=== PATIENT | male | born 1990 | race Caucasian/White ===

== ENCOUNTER 2017-05-03 07:35 | Emergency (ER) | payer SELFPAY ==
[2017-05-03] MEDS ORDERED: IBUPROFEN 600 MG TABLET PO ONE (07:59)
--- NOTE | 2017-05-03 08:01 | ER Document Report ---
ED General - General Chief Complaint: Hand Injury Stated Complaint: FALL/HAND PAIN Time Seen by Provider: 05/03/17 07:55 Notes: 27-year-old male presents with pain in the right hand for 3 days since it was crushed by a an auto part while he was fixing a car. He has pain mostly in the knuckles of the third through fifth digits which radiates up the ulnar aspect of his arm. Associated with tingling of the pinky and subjective tingling up the ulnar aspect of the forearm. Tetanus is up-to-date. Scabs on the hand are healing without redness or pus per patient. No fever. He is also been having left ankle pain "ever since the snow came" and has had an old injury on that leg. Of note the patient is markedly obese. - Related Data Allergies/Adverse Reactions: No Known Allergies Allergy (Verified 05/03/17 08:05) Past Medical History - Social History Smoking Status: Never Smoker Family History: None Review of Systems - Review of Systems Notes: REVIEW OF SYSTEMS GEN: Denies fever, chills, weight loss ENT: Denies sore throat, nasal discharge, ear pain EYES: Denies blurry vision, eye pain, discharge CV: Denies chest pain, palpitations, edema RESP: Denies cough, shortness of breath, wheezing GI: Denies abdominal pain, nausea, vomiting, diarrhea MSK: Right hand pain left ankle pain, SKIN: Denies rash, skin lesions LYMPH: Denies swollen glands/lymph nodes NEURO: Denies headache, focal weakness or numbness, dizziness PSYCH: Denies depression, suicidal or homicidal ideation PHYSICAL EXAMINATION General: No acute distress, well-nourished Head: Atraumatic, normocephalic ENT: Mouth normal, oropharynx moist, no exudates or tonsillar enlargement Eyes: Conjunctiva normal, pupils equal, lids normal Neck: No JVD, supple, no guarding CVS: Normal rate, regular rhythm, no murmurs Resp: No resp distress, equal and normal breath sounds bilaterally GI: Nondistended, soft, no tenderness to palpation, no rebound or guarding Ext: mild swelling of the right hand with tenderness through the third through fifth metacarpal phalangeal joints and over the metacarpals. Good range of motion in all joints. Scabbing to the knuckles on the third through fifth digit as well as the proximal interphalangeal joints of the same. Left ankle with good range of motion no apparent effusion and no point tenderness. Back: No CVA or midline TTP Skin: No rash, warm Lymphatic: No lymphadeopathy noted Neuro: Awake, alert. Face symmetric. GCS 15. Subjective tingling in the ring and pinky finger on the right hand. Physical Exam - Vital signs Vitals: Temp Pulse Resp BP Pulse Ox 98.4 F 102 H 19 150/90 H 98 05/03/17 07:39 05/03/17 07:39 05/03/17 07:39 05/03/17 07:39 05/03/17 07:39 Course - Re-evaluation Re-evalutation: 05/03/17 08:01 Obese 27-year-old male presents with traumatic right hand pain for 2 days concerning for fracture. Definitely there was a component of crush injury although his compartments are soft and there is only mild edema. Numbness and tingling on the right hand is likely from a nerve injury to the ulnar aspect of the hand rather than compartment syndrome. Ankle pain is likely arthritis/flare of chronic injury in the setting of whether , doubt gout doubt septic arthritis. Will x-ray both joints, treat with Motrin and reassess. 05/03/17 08:46 Imaging shows chronic right metacarpal deformity. His symptoms are likely from soft tissue. I will have him start the elevate, splint for comfort and follow- up with orthopedics. His echo shows arthritis. Likely the chronic flare given the weather. Prescribed Motrin and narcotic. Follow-up primary care for that ankle. I have discussed with the patient there likely diagnosis, aftercare plan, follow -up plans and my usual and customary return precautions. They verbalized understanding of this. 05/03/17 08:47 - Vital Signs Vital signs: Temp Pulse Resp BP Pulse Ox 98.4 F 102 H 19 150/90 H 98 05/03/17 07:39 05/03/17 07:39 05/03/17 07:39 05/03/17 07:39 05/03/17 07:39 - Diagnostic Test Radiology reviewed: Image reviewed, Reports reviewed Discharge - Discharge Clinical Impression: Injury, crush, hand Qualifiers: Encounter type: initial encounter Laterality: right Qualified Code(s): S67.21XA - Crushing injury of right hand, initial encounter Condition: Good Disposition: HOME, SELF-CARE Instructions: Crush Injury ([facility]) Additional Instructions: We did not find a broken bone in your hand. You definitely have an injury to the nerve and a crush injury to the hand. Please take the pain meds are prescribed and follow-up with orthopedics in 3-5 days. Please return to the ER for worsening numbness or tingling in the hand. Prescriptions: Ibuprofen 600 mg PO Q6HP PRN #30 tablet PRN Reason: Oxycodone HCl/Acetaminophen [Percocet 5-325 mg Tablet] 2 tab PO Q6HP PRN #15 tab PRN Reason: Forms: Return to Work
--- NOTE | 2017-05-03 08:44 | RADIOLOGY REPORT (SQ) ---
EXAM DESCRIPTION: ANKLE LEFT COMPLETE COMPLETED DATE/TIME: 05/03/2017 8:33 am REASON FOR STUDY: pain swelling COMPARISON: None. NUMBER OF VIEWS: Three views. TECHNIQUE: AP, lateral, and oblique radiographic images acquired of the left ankle. LIMITATIONS: None. FINDINGS: MINERALIZATION: Normal. BONES: Chronic appearing avulsions along the medial and lateral malleolar. No definitive acute fract ure. JOINTS: No effusions. SOFT TISSUES: Soft tissue swelling. No foreign body. OTHER: No other significant finding. IMPRESSION: Chronic appearing changes along the lateral and medial malleolus. No definite acute fra cture. TECHNICAL DOCUMENTATION: JOB ID: [id number] [email or web address]- All Rights Reserved
--- NOTE | 2017-05-03 08:45 | RADIOLOGY REPORT (SQ) ---
EXAM DESCRIPTION: HAND RIGHT 3 VIEWS COMPLETED DATE/TIME: 05/03/2017 8:33 am REASON FOR STUDY: injury COMPARISON: None. EXAM PARAMETERS: NUMBER OF VIEWS: Three views. TECHNIQUE: AP, lateral and oblique radiographic images acquired of the right hand. LIMITATIONS: None. FINDINGS: MINERALIZATION: Normal. BONES: Chronic deformity of the 5th metacarpal. No acute fracture. JOINTS: No effusions. SOFT TISSUES: No soft tissue swelling. No foreign body. OTHER: No other significant finding. IMPRESSION: Chronic deformity of the 5th metacarpal without acute fracture. TECHNICAL DOCUMENTATION: JOB ID: [id number] [email or web address]- All Rights Reserved
[2017-05-03 08:56] VITALS: BP 134/87
== END 2017-05-03 08:56 | disposition home or self-care (01) ==
LOC: ER 07:35
DX: S67.21XA Crushing injury of right hand, initial encounter (principal); M79.641 Pain in right hand; X58.XXXA Exposure to other specified factors, initial encounter; Y93.89 Activity, other specified; M19.90 Unspecified osteoarthritis, unspecified site; M25.572 Pain in left ankle and joints of left foot; E66.9 Obesity, unspecified; Z68.44 Body mass index [BMI] 60.0-69.9, adult; R20.0 Anesthesia of skin; R20.2 Paresthesia of skin
CPT/HCPCS: 99283

== ENCOUNTER 2017-06-02 15:40 | Emergency (ER) | payer SELFPAY ==
[2017-06-02 15:57] VITALS: BP 162/97
[2017-06-02] MEDS ORDERED: LIDOCAINE 1% INJ-PF (10 MG/ML) 30 ML SDV INJ ONE (16:36)
--- NOTE | 2017-06-02 16:43 | ER Document Report ---
ED Wound - General Chief Complaint: Laceration Stated Complaint: RIGHT HAND LACERATION Time Seen by Provider: 06/02/17 16:36 Notes: Patient is a 27-year-old male presenting to the emergency department with a laceration to his right hand. Patient reports that he did not know that his pocket knife was open, he put his hand in his pocket and sliced the lateral side of his hand. Bleeding is controlled at this time. Patient reports he has limited movement of his right pinky finger prior to the laceration due to a fracture. Patient reports his tetanus status is up-to-date TRAVEL OUTSIDE OF THE [place] IN LAST 30 DAYS: No - HPI Patient complains to provider of: Laceration Occurred: Just prior to arrival Onset/Duration: Sudden Quality of pain: Sharp Context: Injury Skin Temperature: Warm Skin Color: Normal Capillary refill: < 3 seconds Sensations intact: Yes Distal pulses present: Yes Associated Symptoms: None - Related Data Allergies/Adverse Reactions: No Known Allergies Allergy (Verified 06/02/17 15:44) Past Medical History - General Information source: Patient - Social History Smoking Status: Current Every Day Smoker Frequency of alcohol use: None Drug Abuse: None Lives with: Family Family History: None - Medical History Medical History: Other - Obesity Renal/ Medical History: Denies: Hx Peritoneal Dialysis Review of Systems - Review of Systems Constitutional: No symptoms reported EENT: No symptoms reported Cardiovascular: No symptoms reported Respiratory: No symptoms reported Gastrointestinal: No symptoms reported Genitourinary: No symptoms reported Male Genitourinary: No symptoms reported Musculoskeletal: No symptoms reported Skin: No symptoms reported Hematologic/Lymphatic: No symptoms reported Neurological/Psychological: No symptoms reported Physical Exam - Vital signs Vitals: Temp Pulse Resp BP Pulse Ox 98.3 F 109 H 20 162/97 H 96 06/02/17 15:56 06/02/17 15:56 06/02/17 15:56 06/02/17 15:56 06/02/17 15:56 Interpretation: Normal - General General appearance: Appears well, Alert - HEENT Head: Normocephalic, Atraumatic Eyes: Normal Pupils: PERRL - Respiratory Respiratory status: No respiratory distress Chest status: Nontender Breath sounds: Normal Chest palpation: Normal - Cardiovascular Rhythm: Regular Heart sounds: Normal auscultation Murmur: No - Abdominal Inspection: Normal Distension: No distension Bowel sounds: Normal Tenderness: Nontender Organomegaly: No organomegaly - Back Back: Normal, Nontender - Extremities General upper extremity: Normal inspection, Nontender, Normal color, Normal ROM , Normal temperature General lower extremity: Normal inspection, Nontender, Normal color, Normal ROM , Normal temperature, Normal weight bearing. No: Sav's sign - Neurological Neuro grossly intact: Yes Cognition: Normal Orientation: AAOx4 [place] Coma Scale Eye Opening: Spontaneous [place] Coma Scale Verbal: Oriented [place] Coma Scale Motor: Obeys Commands [place] Coma Scale Total: 15 Speech: Normal Motor strength normal: LUE, RUE, LLE, RLE Sensory: Normal - Psychological Associated symptoms: Normal affect, Normal mood - Skin Skin Temperature: Warm Skin Moisture: Dry Skin Color: Normal Skin irregularity: Laceration - 1 inch laceration to lateral hand. No tendon injury Course - Re-evaluation Re-evalutation: 06/02/17 17:37 Patient's blood pressure is noted to be elevated. Patient denies history of hypertension. But admits to a lot of stress recently plus the pain of his laceration most likely causing his blood pressure to rise. Patient denies any hypertensive crisis symptoms. No headache, chest pain, shortness of breath or dizziness. Patient instructed to monitor blood pressure and follow-up with his primary care blood pressure remains elevated patient is agreeable with plan is stable for discharge - Vital Signs Vital signs: Temp Pulse Resp BP Pulse Ox 98.3 F 109 H 20 162/97 H 96 06/02/17 15:56 06/02/17 15:56 06/02/17 15:56 06/02/17 15:56 06/02/17 15:56 Procedures - Laceration/Wound Repair Right hand Wound length (cm): 3 Wound's Depth, Shape: Linear Anesthetic type: 1% Lidocaine Wound Repaired With: Sutures Suture Size/Type: 4:0 Number of Sutures: 4 Layer Closure?: No Post-procedure wound care: Sterile dressing applied Post-procedure NV exam normal: Yes Complications: No Discharge - Discharge Clinical Impression: Laceration of right hand Qualifiers: Encounter type: initial encounter Foreign body presence: without foreign body Qualified Code(s): S61.411A - Laceration without foreign body of right hand, initial encounter Condition: Stable Disposition: HOME, SELF-CARE Instructions: Antibiotic Ointment Protection ([facility]), Laceration Care ([facility]), Soap Cleansing ([facility]) Additional Instructions: Keep your sutures clean and dry Cover sutures with antibiotic ointment and bandage when out in public, with home keep sutures open to air Suture removal in 7 days Prescriptions: Ibuprofen [Motrin 800 Mg Tablet] 800 mg PO Q6H #20 tablet Forms: Elevated Blood Pressure
[2017-06-02] MEDS ORDERED: HYDROCODONE/ACETAMINOPHEN 5-325 MG TABLET PO ONE (17:35)
[2017-06-02] MEDS ORDERED: IBUPROFEN 800 MG TABLET PO ONE (17:35)
== END 2017-06-02 17:49 | disposition home or self-care (01) ==
LOC: ER 15:40
PROC: 0HQFXZZ Repair Right Hand Skin, External Approach (ICD-10-PCS; principal; 2017-06-02)
DX: S61.411A Laceration without foreign body of right hand, initial encounter (principal); E66.9 Obesity, unspecified; W26.0XXA Contact with knife, initial encounter
CPT/HCPCS: 99283; 12002; J3490

== ENCOUNTER 2017-08-22 21:39 | Emergency (ER) | payer SELFPAY ==
--- NOTE | 2017-08-22 22:50 | ER Document Report ---
ED Psych Disorder / Suicide - General Mode of Arrival: Ambulatory Information source: Patient TRAVEL OUTSIDE OF THE [place] IN LAST 30 DAYS: No <KAREN BRITT - Last Filed: 08/23/17 03:03> <NAE BALLARD - Last Filed: 08/23/17 03:37> - General Chief Complaint: Suicidal Ideation Stated Complaint: MED REFILL Time Seen by Provider: 08/22/17 22:34 Notes: Patient is a 27 year old male with a history of Bipolar Disorder, ADD, and depression presents to the emergency department complaining of SI. Patient states that he has been without the medications for 2 years and has recently become homeless within the last 3 weeks. He states that he moved back to [place], [place] after his fiance became . Patient also admits to recently cutting himself on his chest four days ago. Patient further states that he has had some suicidal ideation without a suicidal plan. Patient states he normally takes Depakote 500 mg 2x daily and Klonapin 1mg 1x daily. Patient states he uses Klonopin for his "mind racing". (KAREN BRITT) - Related Data Allergies/Adverse Reactions: No Known Allergies Allergy (Verified 08/22/17 21:53) Past Medical History - General Information source: Patient - Social History Smoking Status: Current Every Day Smoker Chew tobacco use (# tins/day): No - Former Frequency of alcohol use: Social Drug Abuse: None Family History: None Psychiatric Medical History: Reports: Hx Attention Deficit Hyperactivity Disorder, Hx Borderline Personality Disorder, Hx Depression <KAREN BRITT - Last Filed: 08/23/17 03:03> Review of Systems - Review of Systems Constitutional: No symptoms reported EENT: No symptoms reported Cardiovascular: No symptoms reported Respiratory: No symptoms reported Gastrointestinal: No symptoms reported Genitourinary: No symptoms reported Male Genitourinary: No symptoms reported Musculoskeletal: No symptoms reported Skin: No symptoms reported Hematologic/Lymphatic: No symptoms reported Neurological/Psychological: See HPI, Suicidal ideation -: Yes All other systems reviewed and negative <KAREN BRITT - Last Filed: 08/23/17 03:03> Physical Exam <KAREN BRITT - Last Filed: 08/23/17 03:03> <NAE BALLARD - Last Filed: 08/23/17 03:37> - Vital signs Vitals: Temp Pulse Resp BP Pulse Ox 99.1 F 113 H 16 128/87 H 96 08/22/17 22:00 08/22/17 22:00 08/22/17 22:00 08/22/17 22:00 08/22/17 22:00 - Notes Notes: GENERAL: Alert, interacts well. No acute distress. HEAD: Normocephalic, atraumatic. EYES: Pupils equal, round, and reactive to light. Extraocular movements intact. ENT: Oral mucosa moist, tongue midline. NECK: Full range of motion. Supple. Trachea midline. LUNGS: Clear to auscultation bilaterally, no wheezes, rales, or rhonchi. No respiratory distress. HEART: Regular rate and rhythm. No murmurs, gallops, or rubs. Superficial, mostly healed abrasions on bilateral upper chest, no signs of infection. ABDOMEN: Soft, non-tender. Obese. Non-distended. Bowel sounds present in all 4 quadrants. EXTREMITIES: Moves all 4 extremities spontaneously. NEUROLOGICAL: Alert and oriented x3. Normal speech. PSYCH: Normal affect, normal mood. SKIN: Warm, dry, and normal turgor. (KAREN BRITT) Course - Laboratory Result Diagrams: 08/23/17 02:50 08/23/17 02:50 - Consults Dr. Moffett Time consulted: 10:45 - Paged Dr. Moffett for medication recommendations and outpatient resources. <KAREN BRITT - Last Filed: 08/23/17 03:03> - Laboratory Result Diagrams: 08/23/17 02:50 08/23/17 02:50 <NAE BALLARD - Last Filed: 08/23/17 03:37> - Re-evaluation Re-evalutation: 08/23/17 01:01 Patient was going to be discharged when we received a phone call from police department reporting a family member contacted the police department saying the patient texted them and stated he has been discharged and was going to kill himself. Patient will be kept for a psych consult in the morning. (KAREN BRITT) 08/22/17 23:31 Dr. Moffett did perform a consult on the patient over the phone, spoke with him regarding his medications, living situation and symptoms. Agrees that medications would likely be a good thing for him however by the time he gets in to see someone as an outpatient he will have run out of his medications from the emergency department again and we feel it would be worse for him should he go on and off of medications multiple times rather than simply waiting to be seen as an outpatient. Patient will be given resources regarding [facility] and [facility]. Patient is aware that shelters are closed for the night, patient states he has another plan on where he will stay this evening. Currently he is making phone calls to arrange a place to stay tonight. Patient will be discharged to home now that I have consulted with Dr. Moffett. Bloodwork has been canceled as this was only ordered in order to guide medication selection. 08/23/17 01:16 Blood work has been reordered. Patient is no longer being discharged as just as he was being discharged he texted his sister and said that he was "turned away from the emergency department" and now states that he is going to kill himself because nobody is willing to help him. Patient will be evaluated face- to-face by behavioral health team first thing in the morning. 08/23/17 02:06 I still feel the patient is very low risk and is not in imminent danger to himself or others however given the fact that the patient feels he was not yet given a thorough evaluation we allow him to stay until the morning so that he can be seen by behavioral health in person. Urine drug screen shows marijuana otherwise unremarkable. Blood work is still pending. 08/23/17 03:36 Patient has leukocytosis but no other signs of infection, CMP unremarkable, acetaminophen and salicylate undetectable, alcohol undetectable. Patient has not yet provided a urine specimen. (NAE BALLARD) - Vital Signs Vital signs: Temp Pulse Resp BP Pulse Ox 99.1 F 113 H 16 128/87 H 96 08/22/17 22:00 08/22/17 22:00 08/22/17 22:00 08/22/17 22:00 08/22/17 22:00 - Laboratory Laboratory results interpreted by me: 08/22/17 08/23/17 08/23/17 22:59 02:50 02:50 WBC 14.2 H RDW 14.3 H Absolute Neutrophils 9.9 H Urine Bilirubin SMALL H Urine Urobilinogen 4.0 H Salicylates < 1.0 L Acetaminophen < 10 L - EKG Interpretation by Me Additional EKG results interpreted by me: 08/23/17 03:36 EKG shows sinus rhythm rate and 96, normal axis, normal intervals, no ST segment elevations or depressions, no T-wave inversions per my interpretation. ( NAE BALLARD) Discharge <KAREN BRITT - Last Filed: 08/23/17 03:03> <NAE BALLARD - Last Filed: 08/23/17 03:37> - Discharge Clinical Impression: Passive suicidal ideations, Self-mutilation Additional Instructions: Depression Your evaluation reveals that you have mental depression. While symptoms may be vague, they often include disturbance of sleep, fatigue, loss of appetite , and general loss of interest in life. While depression may be a side effect of drugs, or a reaction to a major change in your life, many cases have no known cause. If depression is acute, and related to a major loss in your life, you can expect it to clear completely with time. If you have been depressed a long time , are prone to repeated bouts of depression or low mood, or have been thinking of suicide, get help. Depression can be treated with anti-depressant medication and counselling. Long-term depression will often take a few weeks to clear, even with appropriate medication. Follow-up care is important. Contact your physician, the hospital emergency center, crisis line, or your counsellor if you are losing control or having self-destructive thoughts. Please call [facility] or [facility] first thing in the morning to arrange an outpatient follow-up appointment. Referrals: [facility] [Provider Group] - Follow up tomorrow IF Crisis Team [Provider Group] - Follow up tomorrow Scribe Attestation: 08/23/17 03:37 I personally performed the services described in the documentation, reviewed and edited the documentation which was dictated to the scribe in my presence, and it accurately records my words and actions. (NAE BALLARD)
[2017-08-22 23:39] LABS: APPEARANCE,URINE CLEAR; BILIRUBIN,URINE SMALL (NEGATIVE); COLOR,URINE AMBER; GLUCOSE, URINE NEGATIVE (NEGATIVE); KETONES,URINE NEGATIVE (NEGATIVE); LEUKOCYTE ESTERASE,URINE NEGATIVE (NEGATIVE); NITRITE,URINE NEGATIVE (NEGATIVE); PROTEIN,URINE NEGATIVE (NEGATIVE); URINE SPECIFIC GRAVITY 1.026
[2017-08-22 23:52] LABS: URINE AMPHETAMINES SCREEN NEGATIVE; URINE BARBITURATES SCREEN NEGATIVE; URINE BENZODIAZEPINES SCREEN NEGATIVE; URINE COCAINE SCREEN NEGATIVE; URINE MARIJUANA (THC) SCREEN UNCONFIRMED POSITIVE; URINE METHADONE SCREEN NEGATIVE; URINE PHENCYCLIDINE SCREEN NEGATIVE
[2017-08-23 03:10] LABS: ABSOLUTE BASOPHILS # (AUTO) 0.1 10^3/uL (0.0-0.2); ABSOLUTE EOSINOPHILS # (AUTO) 0.3 10^3/uL (0.0-0.6); ABSOLUTE MONOCYTES (AUTO) 0.9 10^3/uL (0.1-1.4); ABSOLUTE NEUT (AUTO) 9.9 10^3/uL (1.7-8.2); BASOPHILS % (AUTO) 0.7 % (0-2); HEMATOCRIT 44.3 % (37.9-51.0); MEAN CORPUSCULAR HEMOGLOBIN 30.1 pg (27.0-33.4); MEAN CORPUSCULAR HGB CONC 33.9 g/dL (32.0-36.0); MEAN CORPUSCULAR VOLUME 89 fl (80-97); MONOCYTES % (AUTO) 6.3 % (3-13); PLATELET COUNT 287 10^3/uL (150-450); RED BLOOD COUNT 4.98 10^6/uL (4.35-5.55); RED CELL DISTRIBUTION WIDTH 14.3 % (11.5-14.0); TOTAL CELLS COUNTED % (AUTO) 100 %; WHITE BLOOD COUNT 14.2 10^3/uL (4.0-10.5)
[2017-08-23 03:21] LABS: ALANINE AMINOTRANSFERASE 47 U/L (21-72); ALBUMIN 4.2 g/dL (3.5-5.0); ALKALINE PHOSPHATASE 73 U/L (38-126); ANION GAP 17 (5-19); ASPARTATE AMINO TRANSFERASE 26 U/L (17-59); BILIRUBIN,DIRECT 0.4 mg/dL (0.0-0.4); BILIRUBIN,TOTAL 0.7 mg/dL (0.2-1.3); BLOOD UREA NITROGEN 13 mg/dL (7-20); CALCIUM 9.4 mg/dL (8.4-10.2); CARBON DIOXIDE 24 mmol/L (22-30); CHLORIDE 104 mmol/L (98-107); GLUCOSE 94 mg/dL (75-110); POTASSIUM 4.1 mmol/L (3.6-5.0); SODIUM 144.9 mmol/L (137-145); TOTAL PROTEIN 7.2 g/dL (6.3-8.2)
[2017-08-23 03:22] LABS: ACETAMINOPHEN < 10 ug/mL (10-30); ALCOHOL < 10 mg/dL (NONE DETECTED); SALICYLATE < 1.0 mg/dL (2.0-20.0)
--- NOTE | 2017-08-23 06:50 | EKG REPORT ---
SEVERITY:- NORMAL ECG - SINUS RHYTHM : Confirmed by: Nabeel Champion MD 23-Aug-2017 06:49:23
--- NOTE | 2017-08-23 10:04 | PSYCHOLOGICAL NOTE ---
Psych Note - Psych Note Psych Note: Reason for evaluation: Suicidal ideation Contact Permissions: None Patient is a 27 year old male. Patient reports he came in for medication because he had been off medications for 2 years. Patient reports his sister felt he did not get what he needed so she called EMS so he could be involuntarily commited. Patient reports he had a fiance but things are currently not going well. Patient reports they plan on working it out. Patient reports he has history of Bipolar Disorder. Patient reports he does not have any thoughts of wanting to hurt harm or kill himself or others. Patient reports he self- harmed yesterday, but not with intent to kill himself. Patient reports he self harms as a way to " deal with stress". Patient reports he feels depressed. Diagnosis: Per patient report 296.7 ( F31.9) Bipolar Disorder current episode unspecified Impression/Plan: Recommendation to rescind involuntary commitment due to patient not meeting criteria [place] GS 122C. Patient is psychiatrically cleared for discharge. Spoke to Hayden Abbott [phone] [facility] for warm hand off, provided patient information. Clinician's purchasing and claims supervisor conducted an evaluation with patient 08/23 , and followed up with patient today 08/24 , please refer to other psych note regarding additional information. Clinician observed patient could benefit from learning coping skills to manage environmental stresses. attending physician in agreement with plan and disposition. Consulted with Dr. Moffett regarding the management and care of patient.
[2017-08-23 10:45] VITALS: BP 140/74
== END 2017-08-23 10:45 | disposition home or self-care (01) ==
LOC: ER 21:39
DX: S21.119A Laceration without foreign body of unspecified front wall of thorax without penetration into thoracic cavity, initial encounter (principal); R45.851 Suicidal ideations; F32.9 Major depressive disorder, single episode, unspecified; X78.9XXA Intentional self-harm by unspecified sharp object, initial encounter; F98.8 Other specified behavioral and emotional disorders with onset usually occurring in childhood and adolescence; Z59.0 Homelessness; F17.200 Nicotine dependence, unspecified, uncomplicated; D72.829 Elevated white blood cell count, unspecified
CPT/HCPCS: 36415; 80053; 80307; 81001; 85025; 93005; 93010; 99285